=== PATIENT | female | born 1985 | race African-American/Black ===

== ENCOUNTER 2024-09-25 16:46 | Outpatient (RCR) | payer BC, SELFPAY ==
[2024-09-13 18:15] VITALS: BP 109/75; PULSE 79
--- NOTE | ~2024-09-25 | US_ITS ---
LIMITED OBSTETRIC ULTRASOUND/BIOPHYSICAL PROFILE Ordering provider: Pernell Martinez MD History: . Gestational diabetes on insulin . Comparison: None. FINDINGS: MATERNAL CERVIX: Not visualized. cm which is normal (normal is equal to or greater than 3.0 cm). PRESENTATION: Vertex. Longitudinal lie. PLACENTAL LOCATION: Anterior. No previa. HEART RATE: 150 bpm (normal is between 110 to 160 bpm). AMNIOTIC FLUID INDEX: . normal . Largest pocket is 6 cm. Radiation OTHER: Maternal ovaries not visualized. SCORE: breathing movements: 2 movements: 2 tone: 2 Amniotic fluid volume: 2 Total: 8 IMPRESSION: Normal biophysical profile. Reviewed, dictated and finalized at location A. [employer] E[employer]OMICS AGENT IMPRESSION: Normal biophysical profile.
--- NOTE | ~2024-09-25 | US_ITS ---
EXAMINATION: US OB BPP wo non-stress DATE: 09/25/2024 18:15 INDICATION: GDM . TECHNIQUE: Real-time ultrasound of the pelvis was performed. COMPARISON: 09/13/2024 FINDINGS: There is a single living fetus in vertex presentation, longitudinal lie. The placenta is anterior, w ell distant from the cervix. heart rate is 146 bpm. The deepest vertical pocket measures 3.0 cm . Biophysical profile performed by the technologist: breathing (30 sec sustained breathing in 30 minutes): 2 out of 2. movement (3 gross body movements in 30 minutes: 2 out of 2. tone (one episode of okrtjzb-zlpbxemcn-flqiyyk limb movement): 2 out of 2. Amniotic fluid pocket (2 cm): 2 out of 2. Total score: 8 out of 8. IMPRESSION: Single living fetus in vertex presentation. Biophysical profile 8 out of 8. Reviewed, dictated and finalized at location K.
[2024-09-25 17:48] VITALS: BP 113/73; PULSE 97
== END 2024-11-07 17:18 | disposition home or self-care (01) ==
LOC: ANHOBOP 16:46
PROVIDERS: Visit Provider Obstetrics & Gynecology
DX: O24.414 Gestational diabetes mellitus in pregnancy, insulin controlled (principal)
CPT/HCPCS: 59025; 76819

== ENCOUNTER 2024-10-04 04:26 | Inpatient (IN) | payer BC, SELFPAY ==
[2024-10-04] VITALS (263 sets, daily range): BP systolic 72–133; BP diastolic 37–97; PULSE 25–182; TEMP 36.1–36.8; O2SAT 67–100; BMI 28.1
--- NOTE | 2024-10-04 04:26 | PC.NURSE ---
Pt arrives to unit with leaking of fluid.
--- OUTSIDE RECORDS SUMMARY | 2024-10-04 04:58 | XMS_ITS | Clinical Summary ---
Author Organization [facility] Address [address] [place] [address] Care Team Providers Care Dextrine Mixer Name Role Phone Ana Maria Hairston MD Primary Care Provider [phone] Source Comments [facility],non-owned Affiliates and Associated Physician Practices is amultiple site organization consisting of ambulatory clinics and hospital sitesin [place], [place], [place] and [place]. This disclosure is being madepursuant to the Care Everywhere program and may not contain all information available regarding this patient. Last updated 18.[facility] [employer] Allergies Active Allergy Reactions Criticality Noted Date Comments Pollen Extract Eye Itching,Rhinitis,Anaphy laxis High 09/05/2012 Other reaction(s): Throat irritation Sulfa Drugs Rash,Urticaria,Itching High 12/12/2015 Medications * Be aware that medications may not be up to date on this document. Alwaysverify current medications with the patient. Medication Sig Dispensed Refills Start Date End Date Status nystatin/triamci nolone (Mycolog) 422547-4.1 UNIT/GM-% ointmentIndicati ons:Chronic vulvitis Use to vulvar skin once a day for 2 weeks. 30 g 05/17/2022 Active mometasone (Elocon) 0.1 % cream as needed As directed 06/21/2022 Active hydrocortisone (Anusol-HC) 25 MG suppositoryIndic ations:Vaginal discharge,Chroni c vulvitis Compounded 20 mg hydrocortisone suppository. Use one vaginally twice a week. 24 suppository 3 07/14/2023 Active nitrofurantoin monohyd macro crystals (Macrobid) 100 MG capsule Take 1 (one) capsule by mouth 2 times daily with morning and evening meal 30 capsule 3 07/19/2023 Active Meth-Hyo-M Bl-Na Phos-Ph Abisai (Uribel) 118 MG Take 1 (one) capsule by mouth 3 times daily as needed 30 capsule 3 09/22/2023 Active Active Problems Problem Noted Date Diagnosed Date COVID-19 03/31/2022 Lower urinary tract infectious disease 3 Overview (05/25/2015): Comments Yes Immunizations Name Administration Dates Next Due INFLUENZA VACCINE, TRIV. (AF LURIA, FLUZONE TRIVALENT; 6MO+) (IIV3) 05/04/2019,04/16/2018 FLU VACCINE TRI IIV3 SPLIT PF IM (FLUVIRIN) 08/2015 HEP B VACCINE, ADULT 3 DOSE 03/13/2020 Human Papilloma Virus Quadrivalent Vaccine 06/20,03/29/2012 INFLUENZA VACCINE 04/19/2014 INFLUENZA VACCINE, QUADR. (F LUZONE; FLULAVAL; FLUARIX; AFLURIA QUADRIVALENT; 6MO+), 0.5 ML (IIV4) 05/07/2020 TDAP (7yrs+) 11/15/2017,11/23/2013 Family History Medical History Relation Name Comments None Known Brother Other Father bone marrow dis ease Thyroid Disease Maternal Aunt None Known Maternal Grandfather CAD (Coronary Artery Disease) Maternal Grandmother Diabetes - Type 2 Maternal Grandmother Hyperlipidemia Maternal Grandmother Hypertension Maternal Grandmother Other Maternal Grandmother lichen sclerosus None Known Maternal Uncle Renal Disease Mother Schizophrenia Mother None Known Other None Known Paternal Aunt None Known Paternal Grandfather Cancer - Breast Paternal Grandmother None Known Paternal Uncle None Known Sister Asthma Neg Hx CVA Neg Hx Cancer - Other Neg Hx Cancer - Skin, Melanoma Neg Hx Cancer - Skin, Non Melanoma Neg Hx Eczema Neg Hx Hemophilia Neg Hx Psoriasis Neg Hx Relation Name Status Comments Brother Father Alive Maternal Aunt Alive Maternal Grandfather Maternal Grandmother Alive Maternal Uncle Mother Alive Other Paternal Aunt Paternal Grandfather Other Paternal Grandmother Other Paternal Uncle Sister Social History Tobacco Use Types Packs/Day Years Used Date Smoking Tobacco: Never Smokeless Tobacco: Never Tobacco Cessation:Counseling Given: Not Answered Alcohol Use Standard Drinks/Week Comments Yes 0 (1 standard drink = 0.6 oz pur e alcohol) Occassional AUDIT-C Answer Date Recorded Q1: How often do you have a drink containing alc ohol? Never 04/02/2020 Average Number of Drinks Not on file 020 Frequency of Binge Drinking Not on file 03/18 PHQ-2 Answer Date Recorded Patient Health Questionnaire-2 Score 0 03/19/2024 Comments Yes Sex and Gender Information Value Date Recorded Sex Assigned at Female 09/17/2022 8:28 AM CUSTOMER SERVICE OPERATOR Gender Identity Female 09/17/2022 8:28 AM CUSTOMER SERVICE OPERATOR Sexual Orientation Straight 09/17/2022 8: 28 AM CUSTOMER SERVICE OPERATOR Last Filed Vital Signs Vital Sign Reading Time Taken Comments Blood Pressure 132/78 03/26/2024 9:01 AM CDT Pulse 78 10/28/2023 8:08 AM CDT Temperature 36.4 C (97.6 F) 09/22/2023 3:14 PM CUSTOMER SERVICE OPERATOR Respiratory Rate 20 02/01/2013 12:04 AM CDT Oxygen Saturation 99% 02/01/2013 12:04 AM CDT Inhaled Oxygen Concentration - - Weight 73.5 kg (162 lb) 03/26/2024 9:01 AM CDT Height 182.9 cm (6') 03/26/2024 9:01 AM CDT Body Mass Index 21.97 03/26/2024 9:01 AM CDT Plan of Treatment Upcoming Encounters Date Type Department Care Team (Late st Contact Info) Description 10/29/2024 8:00 AM CDT Office Visit [facility] - SPECIAL DEPUTY SHERIFF [address] [phone] Sun Tran APRN-JEFF [address] [place] [address] 12/03/2024 10:50 AM CDT Office Visit [facility] [place] [facility] - SPECIAL DEPUTY SHERIFF [address] [place] [address] Rohini Price, QUARTZ C[employer]TER[employer]OP[employer] [address] [address] Health Maintenance Due Date Last Done Comments HPV VACCINE (3 - 3-dose series) 09/26/2012 06/20/2012, 03/29/2012 HEPATITIS B VACCINE (2 of 3 - 19+ 3-dose series) 04/10/2020 03/13/2020 COVID-19 VACCINE (4 - 2023- season) 2024 07/22/2021, 12/20/2020, 11/19/2020 INFLUENZA VACCINE (#1) 2024 , 05/04/2021, 05/07/2020, Additional history exists DEPRESSION SCREENING 07/18/2024 10/28/2023, 01/05/20 23 DTAP/TDAP/TD VACCINES (3 - Td or Tdap) 11/16/2027 11/15/2017, 11/23/2013 PAP with HPV 10/27/2028 10/28/2023 ZOSTER VACCINE (1 of 2) 2037 Respiratory Syncytial Virus (RSV) Vaccine Pt: or over 60 yrs (1 - 1-dose 75+ series) 2062 HIV SCREENING Completed 06/04/2019 HEPATITIS C SCREENING Completed 11/16/2022 , 06/04/2019, 06/04/2019 HIB VACCINE Aged Out No longer eligi ble based on patient's age to complete this topic MENINGOCOCCAL (Group B) VACCINE SHARED DECISION-MAKING Aged Out No longer eligible based on patient's age to complete this topic MENINGOCOCCAL GROUPS A/C/Y/W VACCINE Aged Out No longer eligible based on patient's age to complete this topic PNEUMOCOCCAL VACCINE Aged Out No long er eligible based on patient's age to complete this topic Procedures Procedure Name Priority Date/Time Associated Diagnosis Comments PAP IG LB +HPV APTIMA REFLEX 16,18/45 Routine 10/28/2023 8:30 AM CDT Encounter for gynecological examination without abnormal finding from Last 3 Months or Most Recently Relevant to Health Maintenance Results * PAP IG LB +HPV APTIMA REFLEX 16,18/45 (10/28/2023 8:30 AM CDT) Diagnosis [facility] ACCOUNT BILL Comment:NEGATIVE FOR INTRAEP ITHELIAL LESION OR MALIGNANCY. Specimen Adequacy [facility] ACCOUNT BILL Comment: Satisfactory for evaluation. Endocervical and/or squamous metaplastic cells (endocervical component) are present. Clinician Provided ICD10 [facility] ACCOUNT BILL Comment:Z01.419 Performed by [facility] ACCOUNT BILL Comment:Candelario Duran , Flame Degreaser (ASCP) Comment . [facility] ACCOUNT BILL Note [facility] ACCOUNT BILL Comment: The Pap smear is a screening test designed to aid in the detection of premalignant and malignant conditions of the uterine cervix. It is not a diagnostic procedure and should not be used as the sole means of detecting cervical cancer. Both false-positive and false-negative reports do occur. . IGLBP CPT Code Automation [facility] ACCOUNT BILL Comment: This liquid based ThinPrep(R) pap test was screened with the use of an image guided system. Human papillomavirus Aptima Negative Negative [facility] ACCOUNT BILL Comment: This nucleic acid amplification test detects fourteen high-risk HPV types (16,18,31,33,35,39,45,51,52,56,58,59,66,68) without differentiation. HPV Genotype Reflexed [facility] ACCOUNT BILL Comment:Criteria not met, HP V Genotype not performed. PART OF UTERINE CERVIX / Unknown 10/28/2023 8:30 AM CDT 10/28/2023 Narrative [facility] ACCOUNT BILL - 11/02/2023 10:12 AM CDT No. of containers..01 ThinPrep Vial Resulting Agency Comment Lab Testing performed at: [facility] [address] [id number] Sun Tran APRN-JEFF LAB - PATHOLOGY /CYTOLOGY ORDERABLES [facility] ACCOUNT BILL [address] [place] [address] from Last 3 Months or Most Recently Relevant to Health Maintenance Care Teams Dextrine Mixer Relationship Specialty Start Date End Date Ana Maria Hairston MD [address] [place] [address] [place] [phone] PCP - General 09/15/21
--- OUTSIDE RECORDS SUMMARY | 2024-10-04 04:58 | XMS_ITS | Clinical Summary ---
Author Organization [facility] Address [address] [place] [address] Phone Care Team Providers Care Meat Processing Center Manager Name Role Phone Ana Maria Hairston MD Primary Care Provider [phone] Allergies Active Allergy Reactions Criticality Noted Date Comments Pollen Extracts Itching,Other (See Comments) Low 09/05/2012 Sneezing, throat irritation Sulfa (Sulfonamide Antibiotics) Hives High 12/12/2015 Medications hydrocortisone acetate (ANUSOL-HC) 25 mg Suppository Compounded 20 mg hydrocortisone suppository. Use one vaginally as directed twice a week. 02/17/20 21 Active nystatin (MYCOSTATIN) 100,000 unit/gram Ointment Apply to affected area every 12 hours. 03/25/20 21 Active mometasone (ELOCON) 0.1 % CreamIndication s:Eczema, unspecified type Apply to affected area daily. 45 Gram 1 06/08/20 22 Active nystatin-triamc inolone (MYCOLOG) 100,000-0.1 unit/gram-% Ointment Use to vulvar skin once a day for 2 weeks. 05/17/20 22 Active benzonatate (TESSALON) 200 mg capsule Take 1 Capsule (200 mg) by mouth 3 times daily. 30 Capsule 06/13/20 23 Active Additional Information Patient not taking.Reported on 10/25/2023 azithromycin (ZITHROMAX) 250 mg tablet Active cephALEXin (KEFLEX) 250 mg capsule Take 1 Capsule by mouth 2 times daily. 09/22/19 24 Active fluconazole (DIFLUCAN) 150 mg tablet TAKE 1 TABLET BY MOUTH NOW. REPEAT IN 48 HOURS FOR A TOTAL OF 2 DOSES 10/05/19 24 Active UribeL 118-10-40.8-36 mg cap Take 1 Capsule by mouth 3 times daily. 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) in 11/201003/29/2012 06/04/2019 Recurrent BV (bacterial vaginosis) 03/29/2012 06/04/2019 Encounters Date Type Department Care Team Description 09/22/2024 External Device Data ST[facility] ABSTRACTION Provider, Abstract 09/21/2024 External Device Data [facility] ABSTRACTION Provider, Abstract 09/19/2024 External Device Data [facility] ABSTRACTION Provider, Abstract 09/05/2024 External Device Data [facility] ABSTRACTION Provider, Abstract 08/14/2024 External Device Data [facility] ABSTRACTION Provider, Abstract 08/08/2024 External Device Data ST[facility] ABSTRACTION Provider, Abstract 08/08/2024 External Device Data [facility] ABSTRACTION Provider, Abstract from Last 3 Months Immunizations Immunization Administration Dates Next Due (ADACEL/BOOSTRIX)(10 YR UP) TDAP VACCINE, 0.5ML, IM 11/15/2017,11/23/2013 (GARDASIL)(9-45 YRS) HUMAN PAPILLOMAVIRUS VACCINE, TYPES 6, 11, 16, 18, QUADRIVALENT (4VHPV), 3 DOSE, IM 06/20/2012,03/29/2012 (PFIZER)(12 YR UP) COVID-19 VACCINE - EMERGENCY USE AUTHORIZATION, MRNA, [id number](PF) 30 MCG/0.3 ML IM SUSP 07/22/2021,12/20/2020,11/19/2020 Hepatitis B Vaccine 03/13/2020 INFLUENZA VACCINE QUADRIVALE NT 6 MOS UP PF IM 05/21/2022,05/07/2020,05/10/2019,06/28,04/26/2017 Influenza Seasonal Unspecifi ed Formulation IM 05/04/2021,05/04/2019,04/16/2018 Influenza Seasonal Unspecifi ed Formulation PF IM 05/19/2016,04/25/2015 Influenza Vaccine Tri Split 4+ Im 05/04/2019, Influenza Vaccine Tri Split 4+ Pf Im 05/19/2016 Influenza, Unspecified Formulation 04/19/2014, Skin Test TB 05/29/2019 Family History Medical History Relation Name Comments Unknown Father Diabetes Maternal Grandmother Hypertension Maternal Grandmother Other Maternal Grandmother fibroid s Diabetes Mother Hypertension Mother Schizophrenia Mother Breast Cancer Neg Hx Colon Cancer Neg Hx Ovarian Cancer Neg Hx Uterine Cancer Neg Hx Relation Name Status Comments Father Other Maternal Grandfather Maternal Grandmother Alive Mother Alive Paternal Grandfather Paternal Grandmother Social History Tobacco Use Types Packs/Day Years Used Date Smoking Tobacco: Never Passive Smoke Exposure: Past Smokeless Tobacco: Never Tobacco Cessation:Counseling Given: No Alcohol Use Standard Drinks/Week Comments Yes 0 (1 standard drink = 0.6 oz pur e alcohol) occ/social Feeling Safe Answer Date Recorded Within the last year, have y ou been afraid of your partner or ex-partner? No 12/26/2019 Within the last year, have y ou been humiliated or emotionally abused in other ways by your partner or ex-partner? No Within the last year, have y ou been kicked, hit, slapped, or otherwise physically hurt by your partner or ex-partner? No 12/26/2019 Within the last year, have y ou been raped or forced to have any kind of sexual activity by your partner or ex-partner? No 12/26/2019 Social Connections Answer Date Recorded Frequency of Communication with Friends and Fami ly Not on file 12/26/2019 Frequency of Social Gatherings with Friends and Family Not on file 12/26/2019 Attends [employer] Services Not on file 12/25 Active Member of Clubs or Organizations Not on f ile 12/26/2019 Attends Club or Organization Meetings Not on kamran e 12/26/2019 Are you , , di vorced, , never , or living with a partner? Never 12/26/2019 Feeling Safe Answer Date Recorded Are you in a relationship wi th someone who hurts you emotionally and/or physically? 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 Not on file Not on file Not on file Not on file Not on file Not on file Last Filed Vital Signs Vital Sign Reading Time Taken Comments Blood Pressure 110/72 10/25/2023 8:10 AM CDT Pulse 62 10/25/2023 8:10 AM CDT Temperature 36.9 C (98.5 F) 06/04/2019 10:29 AM HORSES OR MULES TEAMSTER Respiratory Rate 18 10/25/2023 8:10 AM CDT Oxygen Saturation 98% 10/25/2023 8:10 AM CDT Inhaled Oxygen Concentration - - Weight 75.5 kg (166 lb 6.4 oz) 10/25/2023 8:10 A M CDT Height 180.3 cm (5' 11 ) 10/25/2023 8:10 AM CDT Body Mass Index 23.21 10/25/2023 8:10 AM CDT Plan of Treatment Upcoming Encounters Date Type Department Care Team (Late st Contact Info) Description 10/24/2024 8:40 AM CDT Office Visit [facility] Care - [address] [place] [phone] Ana Maria Hairston MD [address] [place] [address] [place] [phone] Health Maintenance Due Date Last Done Comments HEPATITIS B VACCINES (1 of 3 - 19+ 3-dose series) 2006 03/13/2020 HPV VACCINES (3 - 3-dose series) 09/26/2012 06/20/20 12, 03/29/2012 PAP SMEAR 04/02/2023 04/02/2022, 01/16 (Previously completed), 01/30/2020 (Previously completed), Additional history exists INFLUENZA VACCINE (#1) 2024 2, 05/04/2021, 05/07/2020, Additional history exists COVID-19 Vaccine (2023-2 5 season) 2024 07/22/2021, 12/20/2020, 11/19/2020 Preventative Visit- Commercial 07/18/2024 0 10/28/2023, 10/25/2023, 11/16/2022, Additional history exists DTAP/TDAP/TD VACCINES (3 - T d or Tdap) 11/16/2027 11/15/2017, 11/23/2013 Procedures Procedure Name Priority Date/Time Associated Diagnosis Comments CERV/VAG CYTO AGE BASED SCREEN PAP Routine 04/02/2022 9:03 AM CDT Well woman exam with routine gynecological exam Screening for cervical cancer Screening for HPV (human papillomavirus) Screening examination for venereal disease from Last 3 Months or Most Recently Relevant to Health Maintenance Results * CERV/VAG CYTO AGE BASED SCREEN PAP (04/02/2022 9:03 AM CDT) COMMENT (PAP): [facility] [place] Comment: This order for age-based cervical cancer and STI screening follows ACOG guidelines(PB 168, 140, BYG508). See individual assays for performing site location. CLINICAL INFORMATION [email or web address] Comment:None given LAST MENSTRUAL PERIOD [facility] [place] Comment:NONE GIVEN PREV PAP: [facility] [place] Comment:11/29/2017 NIL PREV BX: [facility] [place] Comment:NONE GIVEN SOURCE [facility] [place] Comment:[facility] ADEQUACY: [email or web address] [place] Comment: Satisfactory for evaluation. Endocervical/transformation zone component present. Age and/or menstrual status not provided PAP INTERP [facility] [place] Comment:Negative for intraep ithelial lesion or malignancy. COMMENT (PAP TEST) [facility] [place] Comment: This Pap test has been evaluated with computer assisted technology. JOB SETTER HONING: Enrique Do- [place] Comment: VALENTÍN, CT(ASCP) CT screening location: [place] [address] [place] [address] EXPLANATORY NOTE Que [facility] [facility] [employer] [facility] [place] Comment: EXPLANATORY NOTE: The Pap is a screening test for cervical cancer. It is not a diagnostic test and is subject to false negative and false positive results. It is most reliable when a satisfactory sample, regularly obtained, is submitted with relevant clinical findings and history, and when the Pap result is evaluated along with historic and current clinical information. HPV E6/E7 Not Detected Not Detected [facility] [place] Comment: Methodology: Commercial Painter-Mediated Amplification This assay detects E6/E7 viral messenger RNA (mRNA) from 14 high-risk HPV types (16,18,31,33,35,39,45,51,52,56,58,59,66,68). Cervical sources are required for HPV testing. If a vaginal source from a patient who has had a total hysterectomy with removal of cervix was submitted, please contact the testing laboratory for alternative testing options. For additional information, please refer to http://education.[employer]/faq/NHJ139w5 (This link if provided for information/ educational purposes only.) Test Performed at: [email or web address] [address] [phone] Ghanshyam Logan D.O., MPH SL Genital SWAB OF ENDOCERVIX / Unknown 04/02/2022 9:03 AM CDT 04/02/2022 10:05 PM CDT Michelle Bertrand NP PATHOLOGY/CYTOLOGY ORDERABL ES Final Result [facility] [phone] [email or web address] [address] [place] [phone] from Last 3 Months or Most Recently Relevant to Health Maintenance Insurance [facility] [employer] Care Teams [employer] Manager Relationship Specialty Start Date End Date Ana Maria Hairston MD [address] [phone] PCP - General Internal Medicine 11/07/14
--- OUTSIDE RECORDS SUMMARY | 2024-10-04 04:58 | XMS_ITS | Data Portability ---
Author Organization [facility] Address [address] [place] [address] [place] [address] Care Team Providers Care Geophysical Prospector Name Role Phone ALLYSONMINAWANDYA Primary Care Provider Assessment Encounter Date Assessment Date Assessment LastModified by Organization Details LastModified Time 09/20/2024 09/20/2024 Patient is ___weeks . Discussed plan. Not available 09/20/2024 17:45:58 09/29/2024 09/29/2024 Patient is ___weeks . Discussed plan. [email or web address] Not available 09/29/2024 11:25:05 Plan of Treatment Reminders Order Date Submit Date Provider Last Modified By Organization Details Last Modified Time Details Appointments U/S OB BPP 2024 03:30P M ULTRASOUND Not available Not available Not available NST 2024 04:00P M NST SCHEDULE Not available Not available Not available OB ROUTINE 2024 04:15P M Jayme MARTINEZ MD Not available Not available Not available U/S OB BPP 2024 03:30P M ULTRASOUND Not available Not available Not available NST 2024 04:00P M NST SCHEDULE Not available Not available Not available OB ROUTINE 2024 04:30P M Jayme MARTINEZ MD Not available Not available Not available Lab None recorde d. Referral None recorde d. Procedures None recorde d. Surgeries None recorde d. Imaging non-str ess test 2024 025 [email or web address] [address], [address], [place], [address], 09/21/2024 07:24:48 US, obstetr ic, follow- up 2024 [address], [address], [place], [address], 09/20/2024 20:26:16 US, obstetr ic, biophys ical profile + non-str ess test [address], [address], [place], [address], 09/20/2024 20:26:16 Medication Orders None recorde d. Patient TargetsNo targets recorded. Patient InstructionsNo instructions recorded. Reason for Referral None Reported. Results Created Date Observation Date Name Description Value Unit Range Abnormal Flag Note LastModifiedBy Organization Detail LastModifiedTime 09/21/1909/20/2024 CULTU RE: GROUP B STREP SCREE N, REFLE X SUSCE PTIBI LITY result report SEE RESULT S BELOW Test: Cultu re: Group B Strep , Refle x Susce ptibi lity ([facility] ) Speci men Sourc e: Vagin a/Rec uday Speci men Type: Vagin al/Re ctal Speci men Date: 1708 Resul t Date: 1447 Resul t Statu s: Final resul t Abnor mal: No Resul ting Lab: [facility] [address] [facility] [place] [address] Tel: CULTU RE ----- ----- ----- --- No Group B strep isola richi at 2 days (ivelisse ctive broth enhan cemen t) Not Available [facility] (Lab) [address] [facility], [place], [address], 09/23/2024 15:49:58 08/15/19 25 08/15/2024 US, obste tric, follo w-up No observ ation record ed. [email or web address] [address], [place], [address], 08/15/2024 17:11:24 08/15/19 25 08/15/2024 US, obste tric, follo w-up No observ ation record ed. [email or web address] [address], [place], [address], 08/16/2024 15:28:46 08/30/19 25 08/30/2024 US, obste tric, bioph ysica l profi le + non-s tress test No observ ation record ed. [email or web address] [address], [place], [address], 08/30/2024 17:01:28 08/30/19 25 08/30/2024 US, obste tric, bioph ysica l profi le + non-s tress test No observ ation record ed. [email or web address] [address], [place], [address], 08/30/2024 21:12:16 08/30/19 25 08/30/2024 non-s tress test No observ ation record ed. [address], [place], [address], 08/30/2024 17:37:48 09/05/19 non-s tress test No observ ation record ed. [address], [place], [address], 09/05/2024 10:23:48 09/06/19 25 09/06/2024 non-s tress test No observ ation record ed. [email or web address] [address], [place], [address], 09/06/2024 17:33:58 09/06/19 25 09/06/2024 US, obste tric, bioph ysica l profi le + non-s tress test No observ ation record ed. [email or web address] [address], [place], [address], 09/06/2024 18:16:54 09/06/19 25 09/06/2024 US, obste tric, bioph ysica l profi le + non-s tress test No observ ation record ed. [email or web address] [address], [place], [address], 09/06/2024 20:26:28 09/13/19 25 09/13/2024 non-s tress test No observ ation record ed. [address] [facility], [place], [address], 09/18/2024 15:50:10 09/13/19 25 09/13/2024 US, obste tric, follo w-up No observ ation record ed. [address] [address], [place], [address], 09/16/2024 22:49:54 09/21/19 25 09/20/2024 US, obste tric, follo w-up No observ ation record ed. [email or web address] [address], [place], [address], 09/20/2024 17:29:29 09/21/19 25 09/20/2024 US, obste tric, bioph ysica l profi le + non-s tress test No observ ation record ed. [email or web address] [address], [place], [address], 09/20/2024 17:29:39 09/21/19 25 09/20/2024 US, obste tric, follo w-up No observ ation record ed. [email or web address] [address], [place], [address], 09/25/2024 11:53:03 09/21/1909/20/2024 non-s tress test No observ ation record ed. [email or web address] [address], [place], [address], 09/20/2024 17:46:46 09/26/1909/25/2024 non-s tress test No observ ation record ed. [address], [place], [address], 09/26/2024 14:13:08 09/26/1909/25/2024 US, obste tric, bioph ysica l profi le No observ ation record ed. [email or web address] [address], [place], [address], 09/25/2024 21:33:40 Result Notes None recorded. Problems Name Problem SNOMED Code Status Onset Date Resolution Date Notes Provider Name and Address Organization Details Recorded Time 41385198 Active 2023 Analia Nunes null, [facility] 4 10:14:46 High hemoglobin A1c level 999504182 Active ha1c 6.1 - early gtt 20wks , passed 3hr gtt, failed rpt 1 hr gtt - 07/31 checking bs x 2wks - Ruled in 08/15/24 Brittany valencia null, [facility] 5 16:37:37 Alpha thalassemi a 21272321 Active 2023 silent carrier - low risk Baljinder Winston null, [facility] 4 12:49:32 Vulvovagin itis 07334622 Active [facility] Vulva specialist 03/26 tx vagina steriods compound filled [facility] Flavia Camacho null, [facility] 4 12:01:55 Gestationa l diabetes mellitus 55029890 Active 202408/15/24 Ruled in per SB after checking BS's QID. Diet teaching completed per TAYO GLEZ. Yang sims @ Flavia Camacho [facility] 5 15:06:26 Gestationa l diabetes mellitus 20387723 Active 202408/15/24 Ruled in per SB after checking BS's QID. Diet teaching completed per RN. Yang GLEZu @ Flavia Camacho [facility] 15:06:26 Problem Notes None recorded. Procedures Surgical History Date Name Laterality Status Provider Name and Address Organization Details Recorded Time 10/28/2023 Date of Last Pap Smear completed Analia Nunes [facility] 03/05/2024 15:35:18 Imaging Results Imaging Date Name Status LastModified by Organiz ation Details LastModified Time 08/15/2024 US, obstetric, follow-up completed [email or web address] [address], [place], [address], 08/15/2024 17:11:24 08/15/2024 US, obstetric, follow-up completed [email or web address] [address], [place], [address], 08/16/2024 15:28:46 08/30/2024 US, obstetric, biophysical profile + non-stress test completed [email or web address] [address], [place], [address], 08/30/2024 17:01:28 08/30/2024 US, obstetric, biophysical profile + non-stress test completed [email or web address] [address], [place], [address], 08/30/2024 21:12:16 08/30/2024 non-stress test active [address], [place], [address], 08/30/2024 17:37:48 09/05/2024 non-stress test completed [address], [place], [address], 09/05/2024 10:23:48 09/06/2024 non-stress test completed [address], [place], [address], 09/06/2024 17:33:58 09/06/2024 US, obstetric, biophysical profile + non-stress test completed [email or web address] [address], [place], [address], 09/06/2024 18:16:54 09/06/2024 US, obstetric, biophysical profile + non-stress test completed [email or web address] [address], [place], [address], 09/06/2024 20:26:28 09/13/2024 non-stress test completed [address] [facility], [place], [address], 09/18/2024 15:50:10 09/13/2024 US, obstetric, follow-up completed [address] [facility], [place], [address], 09/16/2024 22:49:54 09/20/2024 US, obstetric, follow-up completed [email or web address] [address], [place], [address], 09/20/2024 17:29:29 09/20/2024 US, obstetric, biophysical profile + non-stress test completed [email or web address] [address], [place], [address], 09/20/2024 17:29:39 09/20/2024 US, obstetric, follow-up completed [address], [place], [address], 09/25/2024 11:53:03 09/20/2024 non-stress test completed [email or web address] [address], [place], [address], 09/20/2024 17:46:46 09/25/2024 non-stress test completed [address], [place], [address], 09/26/2024 14:13:08 09/25/2024 US, obstetric, biophysical profile completed [address], [place], [address], 09/25/2024 21:33:40 Procedure Notes None recorded. Medical Equipment None Reported. Allergies No known drug allergies Medications Name Sig Start Date Stop Date Status Note LastModified by Organization Details LastModified Time hydrocortis one 20mg supp Use one vaginally twice a week. 2023 active Not Available Not Available Not Avai lable fluconazole 150 mg tablet Take 1 tablet every other day by oral route. 07/02 completed Not Available Not Available Not Available benzonatate 200 mg capsule 03/05 completed Not Available Not Available Not Available cephalexin 250 mg capsule TAKE 1 CAPSULE BY MOUTH TWICE DAILY FOR 7 DAYS 03/05 completed Not Available Not Available Not Available omeprazole 40 mg capsule,del ayed release Take 1 capsule every day by oral route. 2023 active Not Available Not Available Not Avai lable nystatin-tr iamcinolone 100,000 unit/gram-0 .1 % topical ointment APPLY TO THE AFFECTED AREA(S) BY TOPICAL ROUTE 2 TIMES PER DAY 07/25 completed Not Available Not Available Not Available benzonatate 100 mg capsule TAKE 1 CAPSULE BY MOUTH EVERY 8 HOURS NEEDED FOR COUGH AND CONGESTIO N 03/05 completed Not Available Not Available Not Available pantoprazol e 40 mg tablet,kyung yed release Take 1 tablet every day by oral route. active Not Available Not Available No t Available promethazin e 25 mg tablet TAKE 1 TABLET BY MOUTH EVERY 4 HOURS active Not Available Not Available No t Available Humulin N NPH U-100 Insulin (isophane susp) 100 unit/mL subcutaneou s INJECT 5 UNITS UNDER THE SKIN AT BEDTIME active Not Available Not Available No t Available nitrofurant oin monohydrate /macrocryst als 100 mg capsule TAKE 1 CAPSULE BY MOUTH TWICE DAILY WITH THE MORNING AND EVENING MEAL 04/02 completed Not Available Not Available Not Available active Not Available Not Avai lable Not Available Uribel 118 mg-10 mg-40.8 mg-36 mg capsule TAKE 1 CAPSULE BY MOUTH THREE TIMES DAILY NEEDED 2023 active Not Available Not Available Not Avai lable OneTouch Verio test strips 09/20 completed Not Available Not Available Not Available OneTouch Verio Flex Meter 08/30 completed Not Available Not Available Not Available OneTouch Delica Plus Lancet 33 gauge 09/20 completed Not Available Not Available Not Available Vitals Date Recorded Body height Body mass index (BMI) Body weight Systolic blood pressure Diastolic blood pressure Provider Name and Address Organization Details Last Updated DateTime 09/11/2024 180.34 cm 28.6 kg/m2 07951.44 g 113 mm[Hg] 67 mm[Hg] Pam Clark [facility] 5 18:15:24 Date Recorded Body height Body mass index (BMI) Body weight Systolic blood pressure Diastolic blood pressure Provider Name and Address Organization Details Last Updated DateTime 09/20/2024 180.34 cm 28.9 kg/m2 48424.62 g 110 mm[Hg] 68 mm[Hg] Analia Nunes [facility] 5 17:47:25 Date Recorded Body height Body mass index (BMI) Body weight Systolic blood pressure Diastolic blood pressure Provider Name and Address Organization Details Last Updated DateTime 09/29/2024 180.34 cm 28.6 kg/m2 22809.44 g 112 mm[Hg] 71 mm[Hg] VIANEY Ferrell [facility] 11:26:49 Social History Question Answer Notes LastModified by Organizat ion Details LastModified Time What Is Your Level Of Alcohol Consumption? Occasional Information not available 03/05/2024 How Many Years Have You Consumed Alcohol? 13 Information not available 03/05/2024 Are You Blind Or Do You Have Difficulty Seeing? No Information n ot available 03/05/2024 What Is Your Level Of Caffeine Consumption? Occasional Information not available 03/05/2024 In The 14 Days Before Symptom Onset, Have You Had Close Contact With A Laboratory-confirm ed COVID-19 While That Case Was Ill? No Information n ot available 03/05/2024 In The 14 Days Before Symptom Onset, Have You Had Close Contact With A Person Who Is Under Investigation For COVID-19 While That Person Was Ill? No Information not available 03/05/2024 Have You Been To An Area Known To Be High Risk For COVID-19? Yes Information not available 03/05/2024 Are You Deaf Or Do You Have Serious Difficulty Hearing? No Information not available 03/05/2024 What Type Of Diet Are You Following? REGULAR Information n ot available 03/05/2024 What Is The Highest Grade Or Level Of School You Have Completed Or The Highest Degree You Have Received? 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 Yes Information not available 03/05/2024 Do You Use Protection During Sex? No Information not available 03/05/2024 Do You Use Your Seat Belt Or Car Seat Routinely? Yes Information not available 03/05/2024 Do You Have Smoke And Carbon Monoxide Detectors In Your Home? Yes Information not available 03/05/2024 How Much Tobacco Do You Smoke? No Information not available 03/05/2024 Do You Feel Stressed (tense, Restless, Nervous, Or Anxious, Or Unable To Sleep At Night)? [id number] Information not available 03/05/2024 Do You Use Any Illicit Or Recreational Drugs? No Information not available 03/05/2024 Do You Use Sunscreen Routinely? Yes Information not available 03/05/2024 Have You Used IV Drugs? No Information not available 03/05/2024 Sex: Unknown Functional Status Question Answer Note LastModified by Organization D etails LastModified Time Are you able to walk? YESWOREST Information not available 03/05/2024 What is your exercise level? Heavy Information not available 03/05/2024 Mental Status None recorded. Family History Relationship Description Onset Age of this Age Resolved Age Notes LastModified by Organization Details LastModified Time Maternal Aunt Diabetes mellitus Not available 2023 15:35:11 Maternal Grandmother Hypercholest erolemia Not available 2023 15:35:11 Maternal Grandmother Hypertensive disorder Not available 2023 15:35:11 Maternal Grandmother Diabetes mellitus Not available 2023 15:35:11 Medical History Condition Response Allergies (Food, seasonal, environmental ) Y Gynecological History Statement/Question Response Abnormal Pap Y Flow Moderate Date of LMP 01/10/2024 On BCP's at Conception? N N Was last menstrual period normal Y STIs/STDs Y HPV Vaccine Y Duration of Flow (days) 5 Current Control Method Are cycles usually normal Y Frequency of Cycle (Q days) 28 Sexually Active? Y Menses Monthly Y Age of first menstrual cycle 16 Date of Last Pap Smear 10/28/2023 Sexual Problems? Y LMP Definite N Obstetrics History GPAL:G 1 P 0 0 0 0 Past Encounters Encounter ID Performer Location Encounter Start Date Encounter Closed Date Diagnosis/Indication Diagnosis SNOMED-CT Code Diagnosis ICD10 Code Diagnosis Note [id number] Dora Rodriguez [address] [address] 03/05/2024 14:33:37 03/05/2024 15:05:13 [id number] Pernell Martinez MD [address] [address] 03/05/2024 14:34:07 03/05/2024 16:07:13 Nausea 574255620 R11.0 Amenorrhea 00347373 N91. 2 this patient is a 38-year-ol d female who presents for amenorrhea . She is a positive test. Ultrasound revealed a 1st trimester gestation. Patient has no complaints . We talked about early care. Talked about genetic screening. We talked about her ultrasound results. We talked about the 12 week ultrasound that has genetic screening components . She was given recommenda tions on exercise, diet, over-the-c ounter medication s. We reviewed her obstetric history. We reviewed her medical history. We reviewed her social history. She will begin routine care at her next visit. [id number] [facility] [address],[place] [address] 04/02/2024 09:34:21 04/02/2024 10:10:31 screening 604205211 Z36.82 Z3A.11 [id number] Pernell Martinez MD [address],[place] [address] 04/02/2024 09:37:28 04/02/2024 10:59:40 Routine care 997387400 Z34.91 Gastroesop hageal reflux disease 174490024 K21.9 [id number] Pernell Martinez MD [address],[place] [address] 05/07/2024 17:34:44 05/08/2024 04:43:54 Routine care 553873881 Z34.91 [id number] Dora [facility] [address],[place] [address] 06/07/2024 15:44:29 06/07/2024 16:53:19 screening for malformation 049617815 Z36.3 Z3A.21 [id number] Pernell Martinez MD [address],[place] [address] 06/07/2024 15:45:56 06/08/2024 12:24:42 Vaginitis 30503252 N76.0 [id number] Pernell Martinez MD [address],[place] [address] 07/02/2024 17:12:10 07/03/2024 06:36:03 Routine care 364692821 Z34.91 [id number] Pernell Martinez MD [address],[place] [address] 07/25/2024 17:43:35 07/26/2024 06:11:23 Routine care 503322024 Z34.91 [id number] Pernell Martinez MD [address],[place] [address] 08/08/2024 17:47:32 08/08/2024 18:34:31 Routine care 841242400 Z34.91 [id number] [facility] [address],[place] [address] 08/15/2024 14:37:24 08/15/2024 15:22:07 Advanced maternal age 840387975 O09.513 O24.410 Z3A.31 [id number] Pernell Martinez MD [address],[place] [address] 08/15/2024 14:43:33 08/15/2024 16:39:40 Routine care 363220167 Z34.91 [id number] Pernell Martinez MD [address],[place] [address] 08/24/2024 15:46:23 08/24/2024 16:56:32 Routine care 640321283 Z34.91 [id number] [facility] [address],[place] [address] 08/30/2024 16:22:10 08/30/2024 17:04:35 Gestational diabetes mellitus 62944126 O24.414 O09.513 Z3A.33 [id number] Analia Nunes [address],[place] [address] 08/30/2024 16:24:53 08/30/2024 17:38:35 Gestational diabetes mellitus 89615341 O24.414 O09.513 Z3A.33 [id number] Pernell Martinez MD [place] [address],[place] [address] 08/30/2024 16:25:21 08/30/2024 17:52:09 Routine care 757636787 Z34.91 [id number] Pernell Martinez MD [place] [address],[place] [address] 09/03/2024 14:04:13 09/03/2024 15:07:01 Gastroesophageal reflux disease 317567029 K21.9 Routine an tenatal care 459478428 Z34.91 [id number] VIANEY Ferrell [address],[place] [address] 09/06/2024 16:50:04 09/06/2024 17:39:37 Gestational diabetes mellitus 76194725 O24.414 O09.513 Z3A.33 [id number] [facility] [address],[place] [address] 09/06/2024 16:52:32 09/07/2024 05:34:47 Gestational diabetes mellitus 41036168 O24.414 Z3A.34 [id number] CLAUDE HURLEY MD [place] [address],[place] [address] 09/11/2024 18:02:21 09/12/2024 07:04:54 Gestational diabetes mellitus class A2 27303490 O24.414 Gestation period, 35 weeks 51681035 Z3A.35 [id number] [facility] [address],[place] [address] 09/20/2024 16:42:44 09/20/2024 17:24:36 Gestational diabetes mellitus 42798917 O24.410 Z3A.36 [id number] Pam Clark [address],[place] [address] 09/20/2024 16:43:02 09/20/2024 17:48:04 Gestational diabetes mellitus 13092149 O24.410 Z3A.36 [id number] Pernell Martinez MD [place] [address],[place] [address] 09/20/2024 16:43:16 09/21/2024 07:26:54 Routine care 332110816 Z34.91 [id number] Pernell Martinez MD [place] [address] [address] 09/29/2024 10:55:44 09/29/2024 11:46:53 Routine care 528871057 Z34.91 Health Concerns Section Related Observation LastModified by Organization Detai ls LastModified Time None Recorded Concern Status LastModified by Organization Details LastModified Time None Recorded Advance Directives Directive None Recorded Payers Encounter Date Sequence Insurance Name Policy Number Policy Marrero Covered Member ID Marrero Member ID Guarantor Name 09/11/2024 1 [place] [employer] [place] ([place]) [address] [facility] [id number] [facility] 09/20/2024 1 [place] [employer] [place] 104 [facility] [id number] [facility] 09/20/2024 1 [place] [employer] [place] 104 [facility] [id number] [facility] 09/20/2024 1 [place] [employer] [place] [place] 104 [facility] [id number] [facility] 09/29/2024 1 [employer] [employer] [place] [place]) 104 [facility] [id number] [facility] OBGyn Episode Ob Episode Information Episode Created Date Number of Fetuses Patient Bloodtype Patient rh Status Prepregnancy Weight lbs Domestic Partner Domestic Partner Phone Father Name Purchasing Assistant Status 04/02/20 24 1 A Positive Luciano OPEN Fetus Data First Name Last Name Admitted to NICU Weight (g) Sex Living Outcome Pediatric Complications Fetus ID Race Codes Race Delivery Type [id number] Problems Problem Notes Problem Name Start Date End Date Resolution Snomed Code Not e Alpha thalassemia 04/16/2024 70316734 s ilent carrier - low risk High hemoglobin A1c level 145442632 ha1c 6.1 - elle y gtt 20wks , passed 3hr gtt, failed rpt 1 hr gtt - 07/31 checking bs x 2wks - Ruled in 08/15/24 Vulvovaginitis 80657971 [facility] Vul[facility] 03/26 tx vagina steriods compound filled [facility] Gestational diabetes mellitus 08/15/2024 79644137 08/15/24 Ruled i n per SB after checking BS's QID. Diet teaching completed per [place] RN.Yang 5u @ Jj Calculation Initial Jj Date Initial Exam Date Initial Exam Provider Initial Ultrasound Date Last Menstrual Period Date Ultra Sound Weeks Gestation 04/02/2024 03/05/2024 01/10/2024 8 Eighteen To Twenty Week Jj Update Ultra Sound Date Fundal Height At Umbil Quickening Date Ultra Sound Latest Weeks Gestation Final Jj Confirmed By Final Jj Confirmed Date Final Jj Date Ultra Sound Latest Days Gestation 0 [email or web address] 04/02/2024 10/17/19 25 0 Pre- Flowsheet Flowsheet Date 04/02/2024 Varela Score Blood Edema Fundus Height Fundus Units Glucose Ketones Leukocytes Nitrite Labor Signs Protein Cervic Dilation Cervic Effacement Cervic Station Type Weight in lbs Pre/Post Dialysis Refused Weight 169.330091033297 BP Diastolic BP Location Tested BP Systolic BP Type 76 L arm 116 sitting Fetus Heart Rate Present A 155 Fetus Movement A No Comments this patient is a 39-year-ol d primiparous female at 12 weeks' gestation who presents for initial care. She has a history of term vaginal births. Her medical, surgical, obstetric history is unremarkable. She is vaccinated. She was given precautions recommendations for . We talked about vaccines in . Talked about care in detail. She is having genetic testing. She had a normal 12 week ultrasound. To begin routine care. Flowsheet Date 05/07/2024 Varela Score Blood Edema Fundus Height Fundus Units Glucose Ketones Leukocytes Nitrite Labor Signs Protein Cervic Dilation Cervic Effacement Cervic Station Type Weight in lbs Pre/Post Dialysis Refused 182.004223784566 BP Diastolic BP Location Tested BP Systolic BP Type 69 L arm 111 sitting Fetus Heart Rate Present A 144 Fetus Movement A Yes Comments no complaints, no problems, routine care, no contractions, no vaginal bleeding, no loss of fluid, no cramping Flowsheet Date 06/07/2024 Varela Score Blood Edema Fundus Height Fundus Units Glucose Ketones Leukocytes Nitrite Labor Signs Protein Cervic Dilation Cervic Effacement Cervic Station Type Weight in lbs Pre/Post Dialysis Refused BP Diastolic BP Location Tested BP Systolic BP Type Fetus Heart Rate Present Fetus Movement Comments Flowsheet Date 06/07/2024 Varela Score Blood Edema Fundus Height Fundus Units Glucose Ketones Leukocytes Nitrite Labor Signs Protein Cervic Dilation Cervic Effacement Cervic Station Type Weight in lbs Pre/Post Dialysis Refused 190.345094359998 BP Diastolic BP Location Tested BP Systolic BP Type 73 L arm 118 sitting Fetus Heart Rate Present A 145 Fetus Movement A Yes Comments complains of white vaginal d ischarge and vulvar pruritus, agreed to treat for vulvovaginitis. Otherwise, routine care, no contractions, no vaginal bleeding, no loss of fluid, no cramping Flowsheet Date 07/02/2024 Varela Score Blood Edema Fundus Height Fundus Units Glucose Ketones Leukocytes Nitrite Labor Signs Protein Cervic Dilation Cervic Effacement Cervic Station 24 cm Type Weight in lbs Pre/Post Dialysis Refused 197.000669367305 BP Diastolic BP Location Tested BP Systolic BP Type 70 L arm 115 sitting Fetus Heart Rate Present Fetus Movement A Yes Comments patient reports discharge ag ain. Patient has a chronic inflammation of the vaginal mucosa. She uses vaginal steroids for this. She is going to continue to use the vaginal steroids as her discharge is resumed. She will use vaginal steroids twice a week Flowsheet Date 07/25/2024 Varela Score Blood Edema Fundus Height Fundus Units Glucose Ketones Leukocytes Nitrite Labor Signs Protein Cervic Dilation Cervic Effacement Cervic Station neg none Type Weight in lbs Pre/Post Dialysis Refused 202.055687354990 BP Diastolic BP Location Tested BP Systolic BP Type 71 L arm 114 sitting Fetus Heart Rate Present A 164 Fetus Movement A Yes Comments no complaints, no problems, routine care, no contractions, no vaginal bleeding, no loss of fluid, no cramping2 Flowsheet Date 08/08/2024 Varela Score Blood Edema Fundus Height Fundus Units Glucose Ketones Leukocytes Nitrite Labor Signs Protein Cervic Dilation Cervic Effacement Cervic Station Type Weight in lbs Pre/Post Dialysis Refused 203.936416480111 BP Diastolic BP Location Tested BP Systolic BP Type 70 116 Fetus Heart Rate Present A 144 Fetus Movement A Yes Comments blood sugars have reasonable control, 2 fasting blood sugars that were high. She ate at an odd time. Baby measures large. It get growth ultrasound in 1 week. Size greater than dates Flowsheet Date 08/15/2024 Varela Score Blood Edema Fundus Height Fundus Units Glucose Ketones Leukocytes Nitrite Labor Signs Protein Cervic Dilation Cervic Effacement Cervic Station Type Weight in lbs Pre/Post Dialysis Refused BP Diastolic BP Location Tested BP Systolic BP Type Fetus Heart Rate Present Fetus Movement Comments Flowsheet Date 08/15/2024 Varela Score Blood Edema Fundus Height Fundus Units Glucose Ketones Leukocytes Nitrite Labor Signs Protein Cervic Dilation Cervic Effacement Cervic Station Type Weight in lbs Pre/Post Dialysis Refused 202.042153920092 BP Diastolic BP Location Tested BP Systolic BP Type 73 L arm 110 sitting Fetus Heart Rate Present A 145 Fetus Movement A Yes Comments getting diet teaching today from the nurses, blood sugars mostly good. Some high fasting sugars in the morning. Some postprandial sugars are high also. Flowsheet Date 08/24/2024 Varela Score Blood Edema Fundus Height Fundus Units Glucose Ketones Leukocytes Nitrite Labor Signs Protein Cervic Dilation Cervic Effacement Cervic Station 33 cm 2+ Type Weight in lbs Pre/Post Dialysis Refused 207.183466221517 BP Diastolic BP Location Tested BP Systolic BP Type 75 L arm 111 sitting Fetus Heart Rate Present A 148 Present Fetus Movement A Yes Comments reasonably good control for her blood sugars. We would not start insulin at this time. To start BPP is next week. Flowsheet Date 08/30/2024 Varela Score Blood Edema Fundus Height Fundus Units Glucose Ketones Leukocytes Nitrite Labor Signs Protein Cervic Dilation Cervic Effacement Cervic Station Type Weight in lbs Pre/Post Dialysis Refused BP Diastolic BP Location Tested BP Systolic BP Type Fetus Heart Rate Present Fetus Movement Comments Flowsheet Date 08/30/2024 Varela Score Blood Edema Fundus Height Fundus Units Glucose Ketones Leukocytes Nitrite Labor Signs Protein Cervic Dilation Cervic Effacement Cervic Station Type Weight in lbs Pre/Post Dialysis Refused Weight 203.122107669488 BP Diastolic BP Location Tested BP Systolic BP Type 70 L arm 108 sitting Fetus Heart Rate Present Fetus Movement Comments Flowsheet Date 08/30/2024 Varela Score Blood Edema Fundus Height Fundus Units Glucose Ketones Leukocytes Nitrite Labor Signs Protein Cervic Dilation Cervic Effacement Cervic Station Type Weight in lbs Pre/Post Dialysis Refused Weight 203.037662934978 BP Diastolic BP Location Tested BP Systolic BP Type 70 L arm 108 sitting Fetus Heart Rate Present A 145 Fetus Movement A Yes Comments no complaints, no problems, routine care, no contractions, no vaginal bleeding, no loss of fluid, no cramping to start insulin today, has not picked it up yet. Blood sugars reasonable, fastings could be better Flowsheet Date 09/03/2024 Varela Score Blood Edema Fundus Height Fundus Units Glucose Ketones Leukocytes Nitrite Labor Signs Protein Cervic Dilation Cervic Effacement Cervic Station Type Weight in lbs Pre/Post Dialysis Refused Weight 206.059593384922 BP Diastolic BP Location Tested BP Systolic BP Type 70 L arm 114 sitting Fetus Heart Rate Present A 148 Present Fetus Movement A Yes Comments no complaints, no problems, routine care, no contractions, no vaginal bleeding, no loss of fluid, no cramping Flowsheet Date 09/06/2024 Varela Score Blood Edema Fundus Height Fundus Units Glucose Ketones Leukocytes Nitrite Labor Signs Protein Cervic Dilation Cervic Effacement Cervic Station Type Weight in lbs Pre/Post Dialysis Refused Weight 207.490843333735 BP Diastolic BP Location Tested BP Systolic BP Type 72 L arm 106 sitting Fetus Heart Rate Present Fetus Movement Comments Flowsheet Date 09/06/2024 Varela Score Blood Edema Fundus Height Fundus Units Glucose Ketones Leukocytes Nitrite Labor Signs Protein Cervic Dilation Cervic Effacement Cervic Station Type Weight in lbs Pre/Post Dialysis Refused BP Diastolic BP Location Tested BP Systolic BP Type Fetus Heart Rate Present Fetus Movement Comments Flowsheet Date 09/11/2024 Varela Score Blood Edema Fundus Height Fundus Units Glucose Ketones Leukocytes Nitrite Labor Signs Protein Cervic Dilation Cervic Effacement Cervic Station neg none Type Weight in lbs Pre/Post Dialysis Refused Weight 205.882954617932 BP Diastolic BP Location Tested BP Systolic BP Type 67 L arm 113 sitting Fetus Heart Rate Present A 145 Fetus Movement A Yes Comments Patient c/o of slight nausea . Good movement. Glucose log overall wnl, two elevated fasting and one elevated PP. WIll keep at 5u at night. Will go to [facility] for monitoring. Discussed GBS for next visit. RTC 1 week. Flowsheet Date 09/20/2024 Varela Score Blood Edema Fundus Height Fundus Units Glucose Ketones Leukocytes Nitrite Labor Signs Protein Cervic Dilation Cervic Effacement Cervic Station Type Weight in lbs Pre/Post Dialysis Refused BP Diastolic BP Location Tested BP Systolic BP Type Fetus Heart Rate Present Fetus Movement Comments Flowsheet Date 09/20/2024 Varela Score Blood Edema Fundus Height Fundus Units Glucose Ketones Leukocytes Nitrite Labor Signs Protein Cervic Dilation Cervic Effacement Cervic Station Type Weight in lbs Pre/Post Dialysis Refused BP Diastolic BP Location Tested BP Systolic BP Type Fetus Heart Rate Present Fetus Movement Comments Flowsheet Date 09/20/2024 Varela Score Blood Edema Fundus Height Fundus Units Glucose Ketones Leukocytes Nitrite Labor Signs Protein Cervic Dilation Cervic Effacement Cervic Station 37 cm Type Weight in lbs Pre/Post Dialysis Refused Weight 207.719222682898 BP Diastolic BP Location Tested BP Systolic BP Type 68 L arm 110 sitting Fetus Heart Rate Present A 134 Fetus Movement A Yes Comments no complaints, no problems, routine care, no contractions, no vaginal bleeding, no loss of fluid, no cramping Flowsheet Date 09/29/2024 Varela Score Blood Edema Fundus Height Fundus Units Glucose Ketones Leukocytes Nitrite Labor Signs Protein Cervic Dilation Cervic Effacement Cervic Station neg none Type Weight in lbs Pre/Post Dialysis Refused Weight 205.391322909668 BP Diastolic BP Location Tested BP Systolic BP Type 71 L arm 112 sitting Fetus Heart Rate Present A 145 Fetus Movement A Yes Comments no complaints, a little naus ea, no contractions, good movement Menstrual History Last Menstrual Date Menses Monthly On Bcp Conception Prior Menses Frequency Hcg Plus Date Menarche Onset Age 0601/10/2024 true Delivery Information Delivery Date Delivery Type Labor Anesthesia Weeks Gestation Incision Type Labor Labor Length Hrs Delivered By Post Complications Tubal Sterilization Discharge Date Comments Discharge Information Feeding Method Contraceptive Method Maternal HG B and HCT Levels
--- OUTSIDE RECORDS SUMMARY | 2024-10-04 04:58 | XMS_ITS | Data Portability ---
Author Organization [facility] Address [address] [place] [address] Care Team Providers Care Miller Helper Name Role Phone TO BAÑUELOS Referring Provider [phone] Assessment No assessment recorded. Plan of Treatment Reminders Order Date Submit Date Provider Last Modified By Organization Details Last Modified Time Details Appointments None record ed. Lab None record ed. Referral None record ed. Procedures None record ed. Surgeries None record ed. Imaging None record ed. Medication Orders None record ed. Patient TargetsNo targets recorded. Patient InstructionsNo instructions recorded. Reason for Referral None Reported. Procedures Surgical History Date Name Laterality Status Provider Name and Address Organization Details Recorded Time 06/13/2017 Sleep Study completed Stevo Levinmerline [facility] 06/14/2017 13:08:39 Imaging Results None recorded. Procedure Notes None recorded. Medical Equipment None Reported. Medications Name Sig Start Date Stop Date Status Note LastModified by Organization Details LastModified Time azithromycin 250 mg tablet active Not Available Not Availabl e Not Available metronidazole 500 mg tablet active Not Available Not Availabl e Not Available mometasone 0.1 % topical ointment active Not Available Not Available Not Available Microgestin 120 (21) 1 mg-20 mcg tablet active Not Available Not Available Not Available Vitals Date Recorded Body height Body mass index (BMI) Body weight Provider Name and Address Organization Details Last Updated DateTime 06/13/2017 177.8 cm 23.8 kg/m2 48212.33 g Dario Hernandezelenita [facility] 06/13/2017 10:07:24 Social History None recorded. Functional Status None recorded. Mental Status None recorded. Family History Nothing Reported. Medical History No medical history recorded. Gynecological HistoryNo gynecological history recorded. Obstetrics History GPAL:G 0 P 0 0 0 0 Past Encounters Encounter ID Performer Location Encounter Start Date Encounter Closed Date Diagnosis/Indication Diagnosis SNOMED-CT Code Diagnosis ICD10 Code Diagnosis Note [id number] MD VERO Pena, F.C.C.P. [id number] [facility] [phone]) [id number] [facility] [address] [place] [address] 06/13/2017 09:38:23 06/14/2017 13:09:35 Obstructive sleep apnea of adult 2178000884 103 G47.33 Health Concerns Section Related Observation LastModified by Organization Detai ls LastModified Time None Recorded Concern Status LastModified by Organization Details LastModified Time None Recorded Advance Directives Directive None Recorded Payers Encounter Date Sequence Insurance Name Policy Number Policy Marrero Covered Member ID Marrero Member ID Guarantor Name 06/13/2017 1 [id number] [employer] ([place]) [id number] Joy Kasper Chano [id number] Joy Kasper Chano Notes Date Note Type Note Provider Name and Address Organization Details Recorded Time 06/13/2017 text/html HST SetupReporte d [email or web address].HST set upDemonstrated to patient how to set up Home Sleep Test Device. The patient was able to return demonstration with out difficulty.; The patient is returning the device the following morning. MD VERO Pena, F.C.C.P. [id number] [facility] [address], [place], [address], [place] - [facility] 06/14/2017 15:15:04 OBGyn Episode No OBEpisode recorded.
--- OUTSIDE RECORDS SUMMARY | 2024-10-04 04:58 | XMS_ITS | Encounter Summary ---
Author Organization [facility] Address [address] [place] [address] Care Team Providers Care Medical Leader Name Role Phone Ana Maria Hairston MD Primary Care Provider [phone] Reason for Visit * Reason Onset Date Comments Question 05/12/2022 Encounter Details Date Type Department Care Team (Late st Contact Info) Description 05/12/2022 Telephone [facility] [address] [place] [place] [id number] Rohini Price, BENEFITS SPECIALIST [facility]CR[facility] [address] [address] Question Social History Tobacco Use Types Packs/Day Years Used Date Smoking Tobacco: Never Smokeless Tobacco: Never Alcohol Use Standard Drinks/Week Comments Not Currently 0 (1 standard drink = 0.6 oz pur e alcohol) AUDIT-C Answer Date Recorded Q1: How often do you have a drink containing alc ohol? Never 04/02/2020 Average Number of Drinks Not on file 020 Frequency of Binge Drinking Not on file 03/18 Sex and Gender Information Value Date Recorded Sex Assigned at Female 09/17/2022 8:28 AM STAFF RADIOGRAPHER Gender Identity Female 09/17/2022 8:28 AM STAFF RADIOGRAPHER Sexual Orientation Straight 09/17/2022 8: 28 AM STAFF RADIOGRAPHER documented as of this encounter Miscellaneous Notes * Telephone Encounter - Magalie Galan RN - 05/13/2022 9:30 AM CDT Per Rohini Price: Inflammatory vaginal discharge with vulvitis. Left voice mail for patient that Rohini Price office returning her call from yesterday She can call the office again or check G-CON messaging for the reply to her call yesterday * Telephone Encounter - Magalie Galan RN - 05/12/2022 4:16 PM CDT Will discuss with provider before returning this call * Telephone Encounter - Radha Lowe - 05/12/2022 4:12 PM CDT Pt calling to confirm her exact diagnosis.. Please contat CB# [phone] documented in this encounter Plan of Treatment Upcoming Encounters Date Type Department Care Team (Late st Contact Info) Description 10/29/2024 8:00 AM CDT Office Visit [facility] - PUBLIC RELATIONS REPRESENTATIVE [address] [place] [address] Sun Tran APRN-DIRECTOR OF PRIMARY CARE [address] [place] [address] 12/03/2024 10:50 AM CDT Office Visit [facility] - PUBLIC RELATIONS REPRESENTATIVE [address] [place] [address] Rohini Price APRN-DIRECTOR OF PRIMARY CARE [address] [address] documented as of this encounter Visit Diagnoses Not on filedocumented in this encounter Care Teams Medical Leader Relationship Specialty Start Date End Date Ana Maria Hairston MD [address] [facility] [address] [place] [address] PCP - General 09/15/21 documented as of this encounter
[2024-10-04 05:39] LABS: Basophils Percent Auto 0.2 % (0.2-1.2); Eosinophils Absolute Auto 0.1 K/mm3 (0-0.3); Eosinophils Percent Auto 0.8 % (0-4.4); Hematocrit 37.8 % (37.0-47.0); Hemoglobin 12.5 g/dL (12.0-15.0); Immature Granulocyte Absolute 0.18 K/mm3 (0.00-0.031); Lymphocytes Absolute Auto 1.79 K/mm3 (0.9-3.2); Lymphocytes Percent Auto 19.7 % (18.3-44.2); Mean Corpuscular HGB Conc 33.1 g/dl (32-36); Mean Corpuscular Hemoglobin 29.3 pg (26-34); Mean Corpuscular Volume 88.5 fl (80-100); Mean Platelet Volume 9.6 fl (7.4-10.4); Monocytes Absolute Auto 0.6 K/mm3 (0.1-0.6); Monocytes Percent Auto 6.6 % (2.6-8.5); Neutrophils Absolute Auto 6.4 K/mm3 (1.3-6.7); Neutrophils Percent Auto 70.7 % (45.5-73.1); Platelet Count Result 283 k/mm3 (150-375); Red Blood Count 4.27 M/mm3 (4.2-5.4); Red Cell Distribution Width 14.9 % (11.5-14.5); White Blood Count 9.1 K/mm3 (4.5-10.0)
[2024-10-04 06:25] LABS: Syphilis IgG/IgM Antibody Negative (Negative)
--- NOTE | 2024-10-04 06:26 | LDADM ---
This patient, Joy Gilman, was admitted to Labor/Delivery/Recovery 106 on 10/04/24 at 04:26. Plans for labor, pain management and were discussed with patient. Patient/family oriented to hospital policies and general routines including ID bracelet, bed and alarms, visiting hours, pain management, procedures, bathroom and other care routines, personal items, smoking policy, room service/diet and guest tray routines, security routines, and visiting hours. Patient/Family are encouraged to report perceived risks to care and to ask questions if they do not understand what they are told or what they should do. See OBIX for further documentation.
[2024-10-04 06:33] LABS: HIV 1/2 Ab P24 Ag Result Negative (Negative)
[2024-10-04 06:57] LABS: Glucose Point of Care 75 mg/dl (65-105)
[2024-10-04 07:08] LABS: OBXCEM ROM Plus Positive (Negative)
--- NOTE | 2024-10-04 08:23 | WPDHPUPDATE1 ---
History and Physical Update Update Date/Time: 10/04/24 08:23 39-year-old primipara with spontaneous rupture membranes. Reassuring status. To augment labor. Active management of labor. History and Physical has been reviewed, including an updated exam of the patient. There are NO changes in the patient's condition. Risks, benefits, and alternatives have been discussed and questions answered. Patient agrees to proceed with procedure.
[2024-10-04 10:53] LABS: Glucose Point of Care 80 mg/dl (65-105)
[2024-10-04] MEDS: LACTATED RINGERS 1,000 ML 125 ML IV CONT ×3 (12:49→22:11)
--- NOTE | 2024-10-04 14:31 | P.PNAN_ITS ---
Anes - Initial Pre Proc Eval Date/Time: 10/04/24 14:31 Surgeon: Pernell Martinez MD Pre Op Diagnosis: Leaking Patient Data Age: 39 Gender: F Height: 1.83 m Weight: 94.1 kg Last Vital Signs Temp 36.8 C 10/04/24 12:00 Pulse 70 10/04/24 14:30 BP 110/73 10/04/24 14:30 Pulse Ox 100 10/04/24 14:25 O2 Del Method Room Air 10/04/24 06:24 Allergies Allergy/AdvReac Type Severity Reaction Status Date / Time Sulfa (Sulfonamide Allergy Mild Hives Verified 10/04/24 06:47 Antibiotics) Home Medications ?Medication ?Instructions ?Recorded ?Confirmed ?Type insulin NPH isoph U-100 human 100 5 unit subcut .nightly 09/13/24 10/04/24 History unit/mL subcutaneous suspension (Novolin N NPH U-100 Insulin isophane) pantoprazole 40 mg tablet,delayed 40 mg PO QAM 09/13/24 10/04/24 History release (Protonix) Laboratory Tests 10/04/24 10/04/24 10/04/24 04:37 05:19 06:51 WBC 9.1 K/mm3 (4.5-10.0) RBC 4.27 M/mm3 (4.2-5.4) Hgb 12.5 g/dL (12.0-15.0) Hct 37.8 % (37.0-47.0) MCV 88.5 fl (80-100) MCH 29.3 pg (26-34) MCHC 33.1 g/dl (32-36) RDW 14.9 H % (11.5-14.5) Plt Count 283 k/mm3 (150-375) MPV 9.6 fl (7.4-10.4) Immature Gran % (Auto) 2.0 H % (0-0.5) Neut % (Auto) 70.7 % (45.5-73.1) Lymph % (Auto) 19.7 % (18.3-44.2) Carlisle % (Auto) 6.6 % (2.6-8.5) Eos % (Auto) 0.8 % (0-4.4) Baso % (Auto) 0.2 % (0.2-1.2) Lymph # (Auto) 1.79 K/mm3 (0.9-3.2) Carlisle # (Auto) 0.6 K/mm3 (0.1-0.6) Eos # (Auto) 0.1 K/mm3 (0-0.3) Baso # (Auto) 0.0 K/mm3 (0.0-0.1) Abs Immat Gran (auto) 0.18 H K/mm3 (0.00-0.031) Absolute Neuts (auto) 6.4 K/mm3 (1.3-6.7) Absolute Nucleated RBC 0.000 K/mm3 (0.0-0.012) Nucleated RBC % 0.0 % (0.0-0.2) POC Capillary Glucose 75 mg/dl (65-105) Membranes Rupture Rom plus positive (Negative) Syphilis IgG/IgM Ab Negative (Negative) HIV 1&2 Ab/P24 Ag 4thGn Negative (Negative) Blood Type A Positive Antibody Screen Negative 10/04/24 10:51 WBC RBC Hgb Hct MCV MCH MCHC RDW Plt Count MPV Immature Gran % (Auto) Neut % (Auto) Lymph % (Auto) Carlisle % (Auto) Eos % (Auto) Baso % (Auto) Lymph # (Auto) Carlisle # (Auto) Eos # (Auto) Baso # (Auto) Abs Immat Gran (auto) Absolute Neuts (auto) Absolute Nucleated RBC Nucleated RBC % POC Capillary Glucose 80 mg/dl (65-105) Membranes Rupture Syphilis IgG/IgM Ab HIV 1&2 Ab/P24 Ag 4thGn Blood Type Antibody Screen Patient hx anesthesia problems: none Family hx anesthesia problems: none Results Review: All pre-operative results and documents have been reviewed as part of the pre- operative evaluation. [facility] Social History Social History Smoking status: Never smoker Substance use: never Do You Feel Safe in your Home?: Yes Lack of Transportation: No Lack of Food: Never True Current Housing: I Have Housing Concerned About Future Housing: No Difficulty Paying Gas/Electric Bills: No Difficulty Paying for Meds: No Currently Unemployed: No Education: Bachelor's Degree Difficulty w/ Childcare or Family Care: No Spiritual care concerns: No Anes - Eval Final PreProcedure Day of Procedure 10/04/24 14:31 Patient weight: overweight Heart: regular rate and rhythm Lungs: clear to auscultation Neurological: alert and oriented ASA classification: II Emergent: no Anesthetic plan: proceed Anesthesia type and monitoring: regional epidural and standard monitoring Results Review: All pre-operative results and documents have been reviewed as part of the pre- operative evaluation. Informed Consent: The patient's anesthetic plan and its attendant risks and benefits were discussed with the patient/family/POA. Questions were solicited and answers provided to the satisfaction of the patient/family/POA.
[2024-10-04 15:11] LABS: Glucose Point of Care 63 mg/dl (65-105)
[2024-10-04 17:11] LABS: Glucose Point of Care 84 mg/dl (65-105)
[2024-10-04 20:58] LABS: Glucose Point of Care 117 mg/dl (65-105)
[2024-10-04 21:07] LABS: Glucose Point of Care 88 mg/dl (65-105)
[2024-10-04] MEDS: AMPICILLIN 2 GM/NS 100 ML 2 GM/100 ML BAG IVPB (21:35)
[2024-10-04] MEDS: ONDANSETRON INJ 4 MG/2 ML VIAL IV PUSH (22:10)
--- NOTE | 2024-10-04 23:38 | PM.OBPRVD ---
OB - Vaginal Delivery Note Procedure Delivery date: 10/04/24 Delivery augmentation: Pitocin Delivery monitor: External FHT and External Uterine Route of delivery: Laceration Description: Perineal - 2nd Degree Delivery repair: vicryl Specimen: No Quantitative Blood Loss (ml): 400 Anesthesia type: Epidural Disposition: Floor Complications: No immediate complications
[2024-10-04] MEDS: OXYTOCIN 30 UNITS/NS 500 ML 30 UNITS/500 ML BAG 125 UNITS IV CONT (23:59)
[2024-10-05] VITALS (13 sets, daily range): BP systolic 86–124; BP diastolic 57–87; PULSE 70–156; RESP 14–18; TEMP 36.7–37.2; O2SAT 98–100
[2024-10-05] MEDS: IBUPROFEN 600 MG TABLET (02:25)
[2024-10-05] MEDS: ACETAMINOPHEN 325 MG TABLET 650 MG (02:25)
[2024-10-05] MEDS: LIDOCAINE 5% PATCH 1 PATCH ×2 (03:08→20:30)
--- NOTE | 2024-10-05 08:20 | PC.NURSE ---
0820: Attempted to assist mother with latching baby. He ate well once after delivery. At the 0540 feeding, mom says that he held the nipple in his mouth but wouldn't suck. He was very sleepy without any feeding cues. Mom has him skin to skin and we will try again in 15 minutes. 0835: Mom has baby skin to skin and he is stirring a little more. He opened him mouth a few times with one latch that looked good. He would not suck, even with stimulation. The process development associate is here to see baby and mom agrees to let him go to the nursery for his assessment. We will discuss with the doctor his lack of feeds overnight and see how we should proceed. The process development associate would like baby to supplement with formula at this time and initiate pumping. Mom has a pump at home so we will provide a Medela pump for hospital use. 1020- Breast pump instructions given on cleaning, care, usage, that there should be no pain, pumping schedule for milk production, collection, and storage of human milk. Patient was assessed for correct placement and flange size (27mm). Parents encouraged to keep pumped milk at the bedside for up to four hours or until the next feeding time.?Mother voiced understanding of the education shared along with mom/baby guide. Reported to the Primary RN.
--- NOTE | 2024-10-05 08:24 | P.PNOB_ITS ---
OB - PN: Subj Subjective Date/time seen: 10/05/24 08:24 Patient comments: no complaints, pain well controlled, incisional pain, tolerating diet and flatus present OB - PN: Obj Data Labs 10/04/24 05:19 Labs: Laboratory Results - last 24 hr 10/04/24 10/04/24 10/04/24 10:51 15:07 17:08 POC Capillary Glucose 80 63 L 84 10/04/24 10/04/24 19:46 20:59 POC Capillary Glucose 117 H 88 OB - PN A/P Plan day: 1 Plan: routine care Comments: No problems, routine care Time Spent With Patient Time: Total time spent is greater than 50% in coordination of care (as documented) at patient's floor/unit and/or counseling patient: Exam 2 Const: General: comfortable, no acute distress and alert Resp: Effort & Inspection: normal respiratory effort Auscultation: no crackles, no rales and no rhonchi Cardio: Rate: regular rate Heart sounds: no click, no murmurs and no rubs GI: Inspection: non-distended GI Palp: No Tenderness to palpation present (GI) Auscultation: normal bowel sounds Other: Incision - CDI Extrem: General: normal to inspection, no pedal edema and no calf tenderness
[2024-10-05] MEDS: ACETAMINOPHEN 325 MG TABLET 650 MG PO ×3 (08:39→20:23)
[2024-10-05] MEDS: DOCUSATE SODIUM 100 MG CAPSULE PO ×2 (08:39→16:48)
[2024-10-05] MEDS: MULTIVIT/MIN/PREN/FOL AC/IRON TABLET 1 TAB PO (08:39)
[2024-10-05] MEDS: IBUPROFEN 600 MG TABLET PO ×3 (08:39→20:23)
[2024-10-05 09:12] LABS: Hematocrit 33.4 % (37.0-47.0); Hemoglobin 10.6 g/dL (12.0-15.0)
--- NOTE | 2024-10-05 13:30 | PC.NURSE ---
Patient called out for assistance. Baby was skin to skin and when placed next to the nipple, he gaped wide and attempted to latch. He will hold the nipple in his mouth and with have an occasional suck with stimulation. We tried to unlatch, reposition, and latch again. He latches optimally, but continued to hold the nipple in his mouth without sucking. Mom was encouraged to keep him at the breast practicing for about 10 minutes. Reviewed the ineffective feeding plan with mom. We reviewed attempt, pump, and bottle feeding every three hours. She was discouraged about not pumping any volume last time and we reviewed that this is expected with pumping for the first time. Mom is agreeable to the feeding plan and will call for further assistance as needed. Reported to RN.
--- NOTE | 2024-10-05 15:50 | WPDANLDPN2 ---
Anes-Prog Note L&D Date/Time: 10/05/24 15:50 Comfortable throughout: labor and delivery Neuraxial method: epidural Epidural/Spinal procedure site: clean & non-tender Neuro status: Neuro function grossly intact. Cardiovascular status: normal Respiratory status: normal Airway patency: baseline Mental status: baseline Post-Op hydration status: normal Vital Signs: Last Vital Signs Temp 36.8 C 10/05/24 11:49 Pulse 75 10/05/24 11:49 Resp 16 10/05/24 11:49 BP 86/57 L 10/05/24 11:49 Pulse Ox 99 10/05/24 11:49 O2 Del Method Room Air 10/04/24 06:24 Pain score (VAS): 3 I/O: Intake & Output 10/04/24 10/05/24 10/05/24 23:59 07:59 15:59 Intake Total 1000 1500 Output Total 400 Balance 600 1500 Post-procedural complaints: none Patient feedback: Patient satisfied with anesthetic care.
[2024-10-06] MEDS: ACETAMINOPHEN 325 MG TABLET 650 MG PO ×2 (02:26→08:51)
[2024-10-06] MEDS: IBUPROFEN 600 MG TABLET PO ×2 (02:26→08:50)
--- NOTE | 2024-10-06 08:11 | P.PNOB_ITS ---
OB - PN: Subj Subjective Date/time seen: 10/06/24 08:11 Patient comments: no complaints, pain well controlled and tolerating diet OB - PN: Obj Data Labs 10/05/24 09:02 Labs: Laboratory Results - last 24 hr 10/05/24 09:02 Hgb 10.6 L Hct 33.4 L OB - PN A/P Plan day: 2 Plan: routine care and discharge home Time Spent With Patient Time: Total time spent is greater than 50% in coordination of care (as documented) at patient's floor/unit and/or counseling patient: Exam 2 Const: General: comfortable and no acute distress Resp: Effort & Inspection: normal respiratory effort Auscultation: no rales, no rhonchi and no wheezes Cardio: Rate: regular rate Heart sounds: no click, no murmurs and no rubs GI: GI Palp: Yes Soft to palpation and No Tenderness to palpation present (GI) Auscultation: normal bowel sounds Extrem: General: normal to inspection, no pedal edema and no calf tenderness
--- NOTE | 2024-10-06 08:13 | P.DS_ITS ---
DS: Admitting Diagnosis Discharge Date 10/06/2024 Admitting Diagnosis Term DS: Discharge Diagnosis Discharge Diagnosis (1) Term delivered: Code(s): O80 - Encounter for full-term uncomplicated delivery Status: Acute OB - DS: Summary OB Procedures : None OB Procedures Intrapartum: Spontaneous Vag Delivery OB Procedures: : None Peripartum Data Laceration Description: Perineal - 2nd Degree Time Spent with Patient Time attestation: Total time spent providing and/or coordinating discharge services: DS: Data Data Completed and Pending Labs on day of discharge: Labs from last 24 hours 10/05/24 09:02 Hgb 10.6 L Hct 33.4 L Discharge Plan Discharge Discharging Clinician: Pernell Martinez Patient Disposition: Home, Self-Care Activity: pelvic rest Diet: regular Patient Instructions: Antibiotic Form Patient Language: Cambodian Stand Alone Forms: General Discharge Information Follow-up/Referrals: Pernell Martinez MD [Physician] - Discharge Medications: Discontinued Novolin N NPH U-100 Insulin 100 unit/mL suspension 5 unit subcut .nightly No Action pantoprazole [Protonix] 40 mg tablet,delayed release (DR/EC) 40 mg PO QAM Date of admission: 10/04/24 04:26 Primary Care Provider: PHYSICIAN NOT ON STAFF,NONSTAFF Admitting Provider: Pernell Martinez Attending physician on admission: Pernell Martinez Condition: Stable
[2024-10-06 08:45] VITALS: BP 116/82; PULSE 75; RESP 16; TEMP 36.2; O2SAT 100
[2024-10-06] MEDS: MULTIVIT/MIN/PREN/FOL AC/IRON TABLET 1 TAB PO (08:51)
[2024-10-06] MEDS: PANTOPRAZOLE 40 MG TABLET PO (08:52)
--- NOTE | 2024-10-06 09:45 | PC.NURSE ---
Consulted with mother concerning /pumping needs and she shared her ability to independently latch optimally without pain. Mother is feeding appropriately for growth of and understands stimulating to eat if needed. Baby has not been effectively so he is on the [id number] feeding plan. Infant has had appropriate feedings in the last 24 hours meets the outcomes for weight, output, blood sugar and jaundice at this time. Reinforced understanding of milk production, transition of milk, signs of adequate intake, transition of stool, prevention/relief of engorgement, plugged ducts, mastitis, responsive watching for feeding cues, the different methods of stimulating to breastfeed 1-3 hours after the start of the last feeding, community resources ([employer] insurance breast pump provided), and when to call a provider using the resource of the feeding sheet along with the mom and baby guide. Mother voiced understanding of the information shared, is confident to continue effectively /pumping at home, when to call for assistance, denies any additional assistance or education at this time. Reported to the Primary RN.
[2024-10-08 08:41] VITALS: BP 123/80; PULSE 80; RESP 18; TEMP 36.6; O2SAT 100
== END 2024-10-06 10:45 | disposition home or self-care (01) | DRG 807 ==
LOC: ANHLDR 04:58 → ANHOB2 10-05 03:02
PROVIDERS: Advanced Practice Midwife; Admitting Provider Obstetrics & Gynecology; Visit Provider Obstetrics & Gynecology
DX: O24.429 Gestational diabetes mellitus in childbirth, unspecified control (principal); Z37.0 Single live birth; Z3A.38 38 weeks gestation of pregnancy; O70.1 Second degree perineal laceration during delivery
CPT/HCPCS: 36415; 82948; 84112; 85014; 85018; 85025; 86593; 86703; 86850; 86900; 86901; A9270; G0432; J0290; J2405; J2590; J2795; J7120

== ENCOUNTER 2024-10-17 11:56 | Outpatient (CLI) | payer BC, SELFPAY ==
--- OUTSIDE RECORDS SUMMARY | 2024-10-17 13:25 | XMS_ITS | Clinical Summary ---
Author Organization [facility] Address [address] [place] [address] Phone Care Team Providers Care Geothermal Technician Name Role Phone Ana Maria Hairston MD Primary Care Provider [phone] Allergies Active Allergy Reactions Criticality Noted Date [...] Encounters Date Type Department Care Team Description 10/03/2024 External Device Data ST[facility] ABSTRACTION Provider, Abstract 10/03/2024 External Device Data [facility] ABSTRACTION Provider, Abstract 09/22/2024 External Device Data [facility] ABSTRACTION Provider, [...] COVID-19 VACCINE - EMERGENCY USE AUTHORIZATION, MRNA, [id number](PF) 30 MCG/0.3 ML IM SUSP 07/22/2021,12/20/2020,11/19/2020 Hepatitis [...] and Family Not on file 12/26/2019 Attends Sikhism Services Not on file 12/25 Active Member [...] on file Legal Sex Female 6:10 AM [employer]GRAMM[employer] INTER[employer] Gender Identity Not on file Sexual Orientation [...] 36.9 C (98.5 F) 06/04/2019 10:29 AM PROGRAMMING INTERNSHIP Respiratory Rate 18 10/25/2023 8:10 AM CDT [...] Description 10/24/2024 8:40 AM CDT Office Visit [facility] [address] [place] [address] [address] [place] [address] Ana Maria Hairston MD [facility] [address] [place] [address] Health Maintenance Due Date Last Done Comments HEPATITIS B VACCINES (1 of 3 - 19+ 3-dose series) 2006 03/13/2020 HPV VACCINES (3 - 3-dose series) 09/26/2012 06/20/20 12, 03/29/2012 HPV/Cotest (21-29) 11/29/2022 11/29/2017, 1 08/15/2015, 06/02/2015, Additional history exists HPV/Cotest (30-65) 11/29/2022 11/29/2017, 1 08/15/2015, 06/02/2015, Additional history exists CERVICAL CANCER SCREENING 04/02/2023 PAP SMEAR 04/02/2023 04/02/2022, 01/16 (Previously completed), 01/30/2020 (Previously completed), Additional history exists INFLUENZA VACCINE (#1) 2024 , 05/04/2021, 05/07/2020, Additional history exists COVID-19 Vaccine (2023- 5 season) 2024 07/22/2021, 12/20/2020, 11/19/2020 Preventative [...] (human papillomavirus) Screening examination for venereal disease CERV/VAG CYTO SCREEN PAP W/HPV Routine 11/29/2017 12:00 PM CDT Well woman exam with routine gynecological exam Screening for cervical cancer Special screening examination for human papillomavirus (HPV) from Last 3 Months or Most Recently Relevant to Health Maintenance Results * CERV/VAG CYTO AGE BASED SCREEN PAP (04/02/2022 9:03 AM CDT) COMMENT (PAP): [facility] [place] Comment: This order for age-based cervical cancer and STI screening follows ACOG guidelines(PB 168, 140, JXD485). See individual assays for performing site location. CLINICAL INFORMATION [facility] [place] Comment:None given LAST MENSTRUAL PERIOD [facility] [place] Comment:NONE GIVEN PREV PAP: [facility] [place] Comment:11/29/2017 NIL PREV BX: [facility] [place] Comment:NONE GIVEN SOURCE [facility] [place] Comment:Endocervix ADEQUACY: [facility] [place] Comment: Satisfactory for evaluation. Endocervical/transformation zone component present. Age and/or menstrual status not provided PAP INTERP [facility] [place] Comment:Negative for intraep ithelial lesion or malignancy. COMMENT (PAP TEST) [facility] [place] Comment: This Pap test has been evaluated with computer assisted technology. REMITTANCE CLERK: [facility] Comment: VALENTÍN, CT(ASCP) CT screening location: [place] [address] [place] [address] EXPLANATORY NOTE [facility] [place] Comment: EXPLANATORY NOTE: The Pap is a [...] information. HPV E6/E7 Not Detected Not Detected [facility] [place] Comment: Methodology: Gut Dropper-Mediated Amplification This assay detects E6/E7 viral messenger RNA (mRNA) from 14 high-risk HPV types (16,18,31,33,35,39,45,51,52,56,58,59,66,68). Cervical sources are required for HPV testing. If a vaginal source from a patient who has had a total hysterectomy with removal of cervix was submitted, please contact the testing laboratory for alternative testing options. For additional information, please refer to http://education.[employer]/faq/YTF797j2 (This link if provided for information/ educational purposes only.) Test Performed at: [facility] [address] [place] [address] Ghanshyam Logan D.O., MPH SL Genital SWAB OF ENDOCERVIX / Unknown 04/02/2022 9:03 AM CDT 04/02/2022 10:05 PM CDT us Michelle Bertrand NP PATHOLOGY/CYTOLOGY ORDERABL ES Final Result [facility] [phone] [facility] [address] [address] [facility] [place] [address] * CERV/VAG CYTOPATH, THIN PREP SOUND CUTTER AND HPV (11/29/2017 12:00 PM CDT) CLINICAL INFORMATION SEE COMMENT 12/02/2017 2:56 AM CDT [facility] Comment: Routine exam Other high risk factor, specify LAST MENSTRUAL PERIOD SEE COMMENT 12/02/2017 2:56 AM CDT [facility] Comment:INFORMATION NOT PROV IDED PREV PAP: SEE COMMENT 12/02/2017 2:56 AM CDT [facility] Comment:06/15/16 NIL PREV BX: SEE COMMENT 12/02/2017 2:56 AM CDT [facility] Comment:INFORMATION NOT PROV IDED SOURCE Endocervix 12/02/2017 2:56 AM CDT [facility] ADEQUACY: SEE COMMENT 12/02/2017 2:56 AM CDT [facility] Comment: Satisfactory for evaluation. Endocervical/transformation zone component present. Age and/or menstrual status not provided PAP INTERP SEE COMMENT 12/02/2017 2:56 AM CDT [facility] Comment:Negative for intraep ithelial lesion or malignancy. COMMENT SEE COMMENT 12/02/2017 2:56 AM CDT [facility] Comment: This Pap test has been evaluated with computer assisted technology. REMITTANCE CLERK: SEE COMMENT 2017 2:56 AM CDT [facility] Comment: MMW, CT(ASCP) CT screening location: [place] [address] [place] [address] EXPLANATORY NOTE SEE COMMENT 018 2:56 AM CDT [facility] Comment: EXPLANATORY NOTE: The Pap is a [...] information. HPV E6/E7 Not Detected Not Detected 12/02/2017 2:56 AM CDT [facility] Comment: This test was performed using the APTIMA HPV Assay ([employer] This assay detects E6/E7 viral messenger RNA (mRNA) from 14 high-risk HPV types (16,18,31,33,35,39,45,51,52,56,58,59,66,68). Genital SWAB OF ENDOCERVIX / Unknown Collection / Unknown 11/29/2017 12:00 PM CDT 11/29/2017 3:34 PM CDT Narrative [facility] - 12/02/2017 2:56 AM CDT Performing Organization Information: Site ID: Name: [facility] Address: [address] [place] [address] Director: Ashley Weston us Michelle Bertrand POULTRY OFFAL WORKER PATHOLOGY/CYTOLOGY ORDERABL ES Final Result [facility] from Last 3 Months or Most Recently Relevant to Health Maintenance Insurance [facility] FEDERAL [employer] [facility] Care Teams Geothermal Technician Relationship Specialty Start Date End Date Ana Maria Hairston MD [address] [place] [address] PCP - General Internal Medicine 11/07/14
--- OUTSIDE RECORDS SUMMARY | 2024-10-17 13:25 | XMS_ITS | Clinical Summary ---
Author Organization [facility] Address [address] [place] [address] Care Team Providers Care Radar Tester Name Role Phone Ana Maria Hairston MD Primary Care Provider [phone] Source Comments [facility],non-owned Affiliates and Associated Physician Practices is amultiple site organization consisting of ambulatory clinics and hospital sitesin [place], [place], [place] and [place]. This disclosure is being madepursuant to the Care Everywhere program and may not contain all information available regarding this patient. Last updated 18.[facility] Allergies Active Allergy Reactions Criticality Noted Date Comments Pollen Extract Eye Itching,Rhinitis,Anaphy laxis High 09/05/2012 Other reaction(s): Throat irritation Sulfa Drugs Rash,Urticaria,Itching High 12/12/2015 Medications * Be aware that medications may not be up to date on this document. Alwaysverify current medications with the patient. Medication Sig Dispensed Refills Start Date End Date Status nystatin/triamci nolone (Mycolog) 072955-7.1 UNIT/GM-% ointmentIndicati ons:Chronic vulvitis Use to vulvar [...] Sex Assigned at Female 09/17/2022 8:28 AM OXYGEN EQUIPMENT AIDE Gender Identity Female 09/17/2022 8:28 AM OXYGEN EQUIPMENT AIDE Sexual Orientation Straight 09/17/2022 8: 28 AM OXYGEN EQUIPMENT AIDE Last Filed Vital Signs Vital Sign Reading Time Taken Comments Blood Pressure 132/78 03/26/2024 9:01 AM CDT Pulse 78 10/28/2023 8:08 AM CDT Temperature 36.4 C (97.6 F) 09/22/2023 3:14 PM OXYGEN EQUIPMENT AIDE Respiratory Rate 20 02/01/2013 12:04 AM CDT [...] Description 10/29/2024 8:00 AM CDT Office Visit [facility] - CHIEF UNDERWRITER [address] [phone] Sun Tran APRN-JEFF [address] [place] [address] 12/03/2024 10:50 AM CDT Office Visit [facility] - CHIEF UNDERWRITER [address] [place] [address] Rohini Price, GREEN END DEPARTMENT SUPERVISOR-HEALTH AND SOCIAL CARE TEACHER [address] [address] Health Maintenance Due Date Last Done Comments HPV VACCINE (3 - 3-dose series) 09/26/2012 06/20/2012, 03/29/2012 HEPATITIS B VACCINE (2 of 3 - 19+ 3-dose series) 04/10/2020 03/13/2020 COVID-19 VACCINE (4 - 2023- season) 2024 07/22/2021, 12/20/2020, 11/19/2020 DEPRESSION SCREENING 07/18/2024 10/28/2023, 01/05/20 23 INFLUENZA VACCINE (Season Ended) 2025 05/21/2022, 05/04/2021, 05/07/2020, Additional history exists DTAP/TDAP/TD VACCINES (3 - Td or Tdap) [...] by [facility] ACCOUNT BILL Comment:Candelario Duran , Felt Washing Machine Tender (ASCP) Comment . [facility] ACCOUNT BILL Note [...] Agency Comment Lab Testing performed at: [facility] [address] [id number] Sun Tran APRN-JEFF LAB - PATHOLOGY /CYTOLOGY ORDERABLES [facility] ACCOUNT BILL [address] [place] [address] from Last 3 Months or Most Recently Relevant to Health Maintenance Care Teams Radar Tester Relationship Specialty Start Date End Date Ana Maria Hairston MD [address] [place] [address] [place] [address] PCP - General 09/15/21
--- OUTSIDE RECORDS SUMMARY | 2024-10-17 13:25 | XMS_ITS | Encounter Summary ---
Author Organization [facility] Address [address] [place] [address] Care Team Providers Care Manager Clinical Applications Name Role Phone Ana Maria Hairston MD Primary Care Provider [phone] Reason for Visit * Reason Onset Date Comments Question 05/12/2022 Encounter Details Date Type Department Care Team (Late st Contact Info) Description 05/12/2022 Telephone [facility] [address] [place] [address] Rohini Price, HOSPITAL RECRUITER-[facility] [address] [address] Question Social History Tobacco Use [...] Sex Assigned at Female 09/17/2022 8:28 AM ANIMAL BOUNTY HUNTER Gender Identity Female 09/17/2022 8:28 AM ANIMAL BOUNTY HUNTER Sexual Orientation Straight 09/17/2022 8: 28 AM ANIMAL BOUNTY HUNTER documented as of this encounter Miscellaneous Notes * Telephone Encounter - Magalie Galan RN - 05/13/2022 9:30 AM CDT Per Rohini Price: Inflammatory vaginal discharge with vulvitis. Left voice mail for patient that Rohini Price office returning her call from yesterday She can call the office again or check [employer] messaging for the reply to her call yesterday * Telephone Encounter - Magalie Galan RN - 05/12/2022 4:16 PM CDT Will discuss with provider before returning this call * Telephone Encounter - Radha Lowe - 05/12/2022 4:12 PM CDT Pt calling to confirm her exact diagnosis.. Please contat CB# [phone] documented in this encounter Plan of Treatment Upcoming Encounters Date Type Department Care Team (Late st Contact Info) Description 10/29/2024 8:00 AM CDT Office Visit [facility] - REVIEW MANAGER [address] [place] [address] Sun Tran APRN-PORTABLE ROUTER OPERATOR [address] [place] [address] 12/03/2024 10:50 AM CDT Office Visit [facility] - REVIEW MANAGER [address] [place] [address] Rohini Price APRN-PORTABLE ROUTER OPERATOR [address] [address] documented as of this encounter Visit Diagnoses Not on filedocumented in this encounter Care Teams Manager Clinical Applications Relationship Specialty Start Date End Date Ana Maria Hairston MD [address] [facility] [address] [place] [address] PCP - General 09/15/21 documented as of this encounter
--- NOTE | 2024-10-17 15:42 | PC.NURSE ---
In- 1200 Out- 1300 Reason for visit: Concern for slow let down and latch issues History: Joy is a . Baby Christian Wolf was delivered vaginally at 38 weeks gestation. Mother is AMA and had gestational diabetes throughout her which was managed with insulin. Baby Christian Wolf had blood sugars completed for 12 hours of life which all resulted WNL. During their hospital stay mother was doing a [id number] feeding plan. She is supplementing with Enfamil after each session. Mother was educated on pumping and feeding during her hospital stay. She is using a [employer] breast pump at home and is able to express 120-150 ml/day. Infant History: Baby Christian Wolf was 8lb 6oz at and 8lb 4oz at discharge. During his stay at the hospital he was not well and RN encouraged mother to begin a [id number] feeding plan. Infant tolerated both breast and bottle. Observations: Mother scheduled an outpatient appointment today with to assess infants latch and possibly low supply. Mother is concerned that she is not making enough at the breast for infant at this time because he is able to take 60cc of Enfamil after each session. She states that will fuss and push away from the breast after about 10 minutes. Discussed with mother early feeding cues vs. late feeding cues. Mother was able to independently latch to the right breast in football position. was eager at the breast and swallows were noted every 2-3 sucks. Mother continued to nurse infant for 18 minutes on the right side. Educated mother about burping infant when switching breast. Infant then latched to the left side appropriately but began to push away and cry. When was sucking swallows were noted every 1-2 sucks before pulling away. Position changed to kangaroo position to control the flow of milk and was able to remain at the breast actively nursing for 12 minutes without pushing away or crying. When was finished, his hands were relaxed and he was sound asleep. Discussed responsive feeding with mother. weight: 8lb 6oz Lowest weight: 8lb 4oz Last weight: 8lb 7oz Pre-feed weight: 9lb 0oz Post-feed weight: 9lb 1.5oz Plan of Care: Mother is able to recognize early feeding cues and states that she will continue responsive feeding. She will only pump when feedings are missed due to bottle feeding to avoid oversupply. Nuzhat and Luciano will be following up with Dr. Michelle Gilman on October.
== END 2024-10-17 11:57 | disposition home or self-care (01) ==
LOC: ANHOBOP 11:58
PROVIDERS: Visit Provider Pediatrics
DX: Z71.89 Other specified counseling (principal)
CPT/HCPCS: 99212; G0463